=== PATIENT | male | born 1945 | race Caucasian/White ===

== ENCOUNTER 2021-11-09 13:35 | Emergency (ER) | payer OTHER ==
[~2021-11-09] VITALS: Ht 182.9 cm; Wt 108.9 kg
[~2021-11-09 13:35] MED LIST: GLIMEPIRIDE1 MG PO; GLUCOPHAGE850 MG PEG; LIPITOR10 MG PO; LISINOPRIL10 MG PO
== END 2021-11-10 13:35 | disposition home or self-care (01) ==
LOC: ED 13:35
DX: R45.851 Suicidal ideations (principal); F91.1 Conduct disorder, childhood-onset type; E11.9 Type 2 diabetes mellitus without complications; Z79.84 Long term (current) use of oral hypoglycemic drugs; Z79.899 Other long term (current) drug therapy; Z20.822 Contact with and (suspected) exposure to COVID-19
CPT/HCPCS: 36415; 80053; 81001; 84443; 85025; 87502; G0480; J1630; J2060; U0003